=== PATIENT | male | born 1950 | race African-American/Black ===

== ENCOUNTER 2016-08-15 06:05 | Emergency (ER) | payer MEDICARE, OTHER ==
[~2016-08-15] VITALS: Ht 182.9 cm; Wt 89.5 kg
[2016-08-15 06:08] VITALS: Ht 182.9 cm; Wt 89.5 kg
--- NOTE | 2016-08-15 07:27 | RADRPT ---
PROCEDURE: XR Chest. CLINICAL INDICATION: Cough TECHNIQUE: Portable single view of the chest COMPARISON: None. FINDINGS: The heart size is top normal. The aorta is slightly tortuous. There is bibasilar atelectasis but n o focal infiltrate, pleural effusion, or overt congestive heart failure is seen. Degenerative vaughn e of the spine is seen. IMPRESSION: Shallow lung volumes with slight bibasilar crowding or atelectasis. RPTAT: [facility] Physician Cruz Date Time Electronically viewed and signed by Ana Bradley Physician on 08/15/2016 07:27 LE/
[2016-08-15] MEDS ORDERED: GUAI118L22 PO (07:43)
[2016-08-15 07:53] VITALS: BP 158/78; RESP 18
--- NOTE | 2016-08-15 08:14 | ERD ---
ER Documentation Chief Complaint Date/Time DATE: 08/15/16 TIME: 08:08 Chief Complaint Cough and ST x2 wks HPI This is a 65-year-old male presenting to the emergency department for cough and sore throat 2 weeks. Patient states he has a productive cough with clear sputum. Patient states this has improved over the last 2 weeks however continues to have cough. Cough is worse at night when he lays down. No wheezing, shortness of breath or difficulty breathing. Patient is talking in complete sentences. Sore throat is mild and is worse when he coughs. No difficulty swallowing or drooling. Denies earache or headache. Patient states he does have rhinorrhea and rhinitis. Patient has tried home remedies as well as NyQuil with some relief of symptoms. No fevers or chills. No sick contacts or recent travel. ROS All systems reviewed and are negative except as per history of present illness. Medications Home Meds Active Scripts Guaifenesin/Codeine Phosphate (CHERATUSSIN AC SYRUP) 118 Ml Liquid, 10 ML PO Q6H Y for COUGH, #118 ML Prov:ALEC AGUAYO NP 08/15/16 Allergies Allergies: Coded Allergies: No Known Allergy (Unverified , 08/15/16) PMhx/Soc History of Surgery: Yes (prostate,right arm) Anesthesia Reaction: No Hx Neurological Disorder: No Hx Respiratory Disorders: No Hx Cardiac Disorders: No Hx Psychiatric Problems: No Hx Miscellaneous Medical Probl: Yes (prostate cancer) Physical Exam Vitals Vital Signs Date Time Temp Pulse Resp B/P Pulse Ox O2 Delivery O2 Flow Rate FiO2 08/15/16 07:53 18 158/78 98 Room Air 08/15/16 06:08 97.2 81 18 164/71 97 Physical Exam Const: No acute distress, alert Head: Atraumatic Eyes: Normal Conjunctiva ENT: Normal External Ears, Nose and Mouth. No erythema or exudate posterior pharynx. Non-kissing tonsils. TMs normal bilaterally. Neck: Full range of motion..~ No meningismus. Resp: Clear to auscultation bilaterally. No wheezing, rhonchi or crackles. Cardio: Regular rate and rhythm, no murmurs Abd: Soft, non tender, non distended. Normal bowel sounds Skin: No petechiae or rashes Back: No midline or flank tenderness Ext: No cyanosis, or edema Neur: Awake and alert Psych: Normal Mood and Affect Procedures/MDM ED COURSE: The patient was stable throughout ED course. I kept the patient and/or family informed of laboratory and diagnostic imaging results throughout the ED course. Imaging Chest x-ray DIAGNOSTIC IMAGING REPORT Patient: NIKKY LONDON : 1950 Age: 65 Sex: M MR #: [id number] DOS: 08/15/16 0654 Ordering MD: ALEC AGUAYO NP Location: [facility] Room/Bed: PROCEDURE: XR Chest. CLINICAL INDICATION: Cough TECHNIQUE: Portable single view of the chest COMPARISON: None. FINDINGS: The heart size is top normal. The aorta is slightly tortuous. There is bibasilar atelectasis but no focal infiltrate, pleural effusion, or overt congestive heart failure is seen. Degenerative change of the spine is seen. IMPRESSION: Shallow lung volumes with slight bibasilar crowding or atelectasis. MDM: This is a 65-year-old male who presents the emergency department for cough and sore throat 2 weeks. Cough has improved however patient is concerned because he continues to have cough for the past 2 weeks. Cough is productive with clear sputum. No signs or symptoms of respiratory distress. Patient is talking in complete sentences throughout ED visit. Oxygen saturation 97% on room air. No fevers or chills. Vital signs are stable. Lung exam and ENT exam are within normal limits. Chest x-ray reviewed reviewed by radiologist shows shallow lung volumes with slight bibasilar crowding or atelectasis. Patient remains calm and comfortable throughout ED visit. Low suspicion for pneumonia, pleural effusion, pneumothorax, strep pharyngitis or epiglottitis. Patient likely has URI, viral. Patient is appropriate for outpatient management will be given prescription for Cheratussin AC syrup. Instructed patient to follow-up with primary care provider in the next 2-3 days for reassessment. Return to ED for any high fever , chest pain, difficulty breathing, shortness breath, wheezing, vomiting, diarrhea, abdominal pain or any new or worsening symptoms. Patient verbalizes understanding. All questions answered at discharge. Departure Diagnosis: Primary Impression: URI (upper respiratory infection) URI type: unspecified viral URI Qualified Code: J06.9 - Viral upper respiratory tract infection Condition: Stable Patient Instructions: Uri, Viral, No Abx (Adult) Referrals: [facility] YOU HAVE RECEIVED A MEDICAL SCREENING EXAM AND THE RESULTS INDICATE THAT YOU DO NOT HAVE A CONDITION THAT REQUIRES URGENT TREATMENT IN THE EMERGENCY DEPARTMENT. FURTHER EVALUATION AND TREATMENT OF YOUR CONDITION CAN WAIT UNTIL YOU ARE SEEN IN YOUR DOCTORS OFFICE WITHIN THE NEXT 1-2 DAYS. IT IS YOUR RESPONSIBILITY TO MAKE AN APPOINTMENT FOR FOLOW-UP CARE. IF YOU HAVE A PRIMARY DOCTOR --you should call your primary doctor and schedule an appointment IF YOU DO NOT HAVE A PRIMARY DOCTOR YOU CAN CALL OUR PHYSICIAN REFERRAL HOTLINE AT IF YOU CAN NOT AFFORD TO SEE A PHYSICIAN YOU CAN CHOSE FROM THE FOLLOWING [facility] [address] [facility] [address] [facility] [facility] [address] [facility] [address] [facility] [address] [facility]. [facility] [address] [facility]. [facility] YOU HAVE RECEIVED A MEDICAL SCREENING EXAM AND THE RESULTS INDICATE THAT YOU DO NOT HAVE A CONDITION THAT REQUIRES URGENT TREATMENT IN THE EMERGENCY DEPARTMENT. FURTHER EVALUATION AND TREATMENT OF YOUR CONDITION CAN WAIT UNTIL YOU ARE SEEN IN YOUR DOCTORS OFFICE WITHIN THE NEXT 1-2 DAYS. IT IS YOUR RESPONSIBILITY TO MAKE AN APPOINTMENT FOR FOLOW-UP CARE. IF YOU HAVE A PRIMARY DOCTOR --you should call your primary doctor and schedule and appointment IF YOU DO NOT HAVE A PRIMARY DOCTOR YOU CAN CALL OUR PHYSICIAN REFERRAL HOTLINE AT . IF YOU CAN NOT AFFORD TO SEE A PHYSICIAN YOU CAN CHOSE FROM THE FOLLOWING [facility] INSTITUTIONS: [facility] [address] [place] [address] [facility] [address] [place] [address] [facility] + [facility] [address] [place] [address] Additional Instructions: Call your primary care doctor TOMORROW for an appointment during the next 2-3 days.See the doctor sooner or return here if your condition worsens before your appointment time. Return to ED for any high fever, chest pain, difficulty breathing, shortness breath, wheezing, vomiting, diarrhea, abdominal pain or any new or worsening symptoms. ALEC AGUAYO NP Aug 15, 2016 08:14
== END 2016-08-15 07:54 | disposition home or self-care (01) ==
LOC: FTE 06:05
DX: J06.9 Acute upper respiratory infection, unspecified (principal); Z85.46 Personal history of malignant neoplasm of prostate
CPT/HCPCS: 71010